=== PATIENT | male | born 1970 | race Caucasian/White ===

== ENCOUNTER 2018-03-01 08:16 | Day surgery (SDC) | payer OTHER ==
[~2018-03-01] VITALS: Ht 172.7 cm; Wt 77.5 kg
[2018-03-01] MEDS ORDERED: 0.9% SODIUM CHLORIDE 10 ML SYRINGE IVP PRN (08:30)
[2018-03-01] MEDS ORDERED: METOPROLOL TARTRATE 50 MG TABLET PO PRN (08:30)
[2018-03-01] MEDS ORDERED: NITROGLYCERIN 400 MCG/SUBLINGUAL SPRAY 4.9 GM BOTTLE SL ONE ×2 (08:41→09:56)
[2018-03-01] MEDS ORDERED: METOPROLOL TARTRATE 5 MG/5 ML VIAL ONE (08:41)
[2018-03-01 09:20] LABS: ANION GAP 3 mmol/L (8-16); CALCIUM, TOTAL 8.7 mg/dL (8.8-10.5); CARBON DIOXIDE 33 mmol/L (22-29); CHLORIDE 103 mmol/L (98-107); CREATININE 0.92 mg/dL (0.60-1.30); GLOMERULAR FILTR. RATE CALC > 60 mL/min (>60); GLUCOSE,RANDOM 83 mg/dL (70-110); POTASSIUM 4.4 mmol/L (3.5-5.1); SODIUM SERUM 139 mmol/L (136-145); UREA NITROGEN, BLOOD 14 mg/dL (7-18)
[2018-03-01] MEDS ORDERED: IOVERSOL 350 MG/ML 150 ML VIAL ONE (09:41)
[2018-03-01] MEDS ORDERED: SODIUM CHLORIDE 0.9% 100 ML ONE (09:41)
[2018-03-01] MEDS ORDERED: NITR0.4T50 SL (10:17)
[2018-03-01] MEDS ORDERED: ASPI-556 PO (10:17)
[2018-03-01] MEDS ORDERED: NAPR-58 PO (10:17)
== END 2018-03-01 10:35 | disposition home or self-care (01) ==
LOC: SURGERY 08:16 → EDSTATUS 10:00 → SURGERY 10:35
PROVIDERS: ATTEND Internal Medicine Cardiovascular Disease
DX: I20.8 Other forms of angina pectoris (principal); I08.3 Combined rheumatic disorders of mitral, aortic and tricuspid valves; I95.89 Other hypotension; I27.20 Pulmonary hypertension, unspecified; F17.210 Nicotine dependence, cigarettes, uncomplicated; Z79.891 Long term (current) use of opiate analgesic; Z79.82 Long term (current) use of aspirin; Z72.89 Other problems related to lifestyle; Z79.899 Other long term (current) drug therapy; Z98.890 Other specified postprocedural states
CPT/HCPCS: 36415; 75574; 80048; 93005; J7050; Q9967; J3490